=== PATIENT | female | born 1975 | race African-American/Black ===

== ENCOUNTER → 2020-01-06 | Outpatient (CLI) | payer OTHER | LOC: BC 12:56 | PROVIDERS: ATTEND Family Medicine | DX: Z12.31 Encounter for screening mammogram for malignant neoplasm of breast (principal) ==

== ENCOUNTER → 2020-05-04 | Outpatient (CLI) | payer OTHER | LOC: MRI 10:44 | PROVIDERS: ATTEND Psychiatry & Neurology Neuromuscular Medicine | DX: M50.31 Other cervical disc degeneration, high cervical region (principal); G95.11 Acute infarction of spinal cord (embolic) (nonembolic); M48.02 Spinal stenosis, cervical region ==

== ENCOUNTER → 2021-02-28 | Outpatient (CLI) | payer OTHER | LOC: BC 02-06 15:09 | PROVIDERS: ATTEND Family Medicine | DX: Z12.31 Encounter for screening mammogram for malignant neoplasm of breast (principal); N63.21 Unspecified lump in the left breast, upper outer quadrant ==

== ENCOUNTER → 2021-03-02 | Outpatient (CLI) | payer OTHER | LOC: ULTRA 07:39 | PROVIDERS: ATTEND Family Medicine | DX: N63.24 Unspecified lump in the left breast, lower inner quadrant (principal) ==

== ENCOUNTER 2021-03-09 14:09 | Emergency (ER) | payer OTHER ==
[~2021-03-09] VITALS: Ht 154.9 cm; Wt 96.6 kg
[2021-03-09 14:56] LABS: ABSOLUTE NEUTROPHILS 4.9 thou/uL (1.4-8.2); BASOPHILS 0.6 % (0.0-2.0); EOSINOPHILS 1.5 % (0.0-3.0); HEMATOCRIT 33.4 % (37.0-47.0); HEMOGLOBIN 11.2 gm/dL (12.0-15.0); LYMPHOCYTES 23.3 % (24.0-44.0); MCH 29.3 pg (26.0-34.0); MCHC 33.6 g/dL (28.0-37.0); MCV 87.2 fL (80.0-100.0); MONOCYTES 8.8 % (1.0-8.0); PLATELET COUNT 242 thou/uL (150-400); POLYS 65.8 % (36.0-66.0); RBC 3.83 mil/uL (4.20-5.00); RDW 14.7 % (10.5-14.5); WBC 7.4 thou/uL (4.0-11.0)
[2021-03-09 15:08] LABS: CREATININE 0.7 mg/dL (0.6-1.0); POTASSIUM 3.3 mmol/L (3.5-5.1)
[2021-03-09 15:33] VITALS: BP 161/49
--- NOTE | 2021-03-10 07:41 | EKG ---
[address] [address] ELECTROCARDIOGRAM REPORT Name: RANDAL EID 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1975 Requested By: Edgard Randhawa Order Number: [id number] MD: Scotty Jean-Baptiste Measurements Intervals [place] Rate: 73 P: 56 ME: 156 QRS: 3 QRSD: 94 T: 56 QT: 389 QTc: 429 Interpretive Statements Sinus rhythm Left ventricular hypertrophy No previous ECG available for comparison Electronically Signed On 03-10-2021 7:40:40 PHARMACY HELPER by cSotty Jean-Baptiste [email or web address] <ELECTRONICALLY SIGNED> By: Scotty Jean-Baptiste MD, [facility] 03/10/21 0740 1419 1419 Scotty Jean-Baptiste MD, FACC /EPI
== END 2021-03-09 15:33 | disposition home or self-care (01) ==
LOC: ER 14:09
PROVIDERS: Emergency Medicine
DX: E87.6 Hypokalemia (principal); R00.2 Palpitations; Z90.89 Acquired absence of other organs; Z90.49 Acquired absence of other specified parts of digestive tract; Z88.2 Allergy status to sulfonamides; Z88.8 Allergy status to other drugs, medicaments and biological substances; Z91.040 Latex allergy status

== ENCOUNTER → 2021-03-15 | Outpatient (CLI) | payer OTHER | END | disposition home or self-care (01) | LOC: ULTRA 13:12 | PROVIDERS: ATTEND Family Medicine | DX: N63.20 Unspecified lump in the left breast, unspecified quadrant (principal); Z53.8 Procedure and treatment not carried out for other reasons; Z88.2 Allergy status to sulfonamides; Z91.040 Latex allergy status ==